=== PATIENT | male | born 1990 | race Two or more races ===

== ENCOUNTER 2018-01-06 17:41 | Observation (INO) | payer MEDICAID, OTHER, SELFPAY ==
[~2018-01-06] VITALS: Ht 177.8 cm; Wt 77.7 kg
[2018-01-06] MEDS ORDERED: ZIPRASIDONE 20MG CAPSULE ONE (18:46)
[2018-01-06] MEDS: ZIPRASIDONE 20MG CAPSULE PO STA ×2 (18:50→19:01)
[2018-01-06 18:52] LABS: BASOPHILS # (AUTO) 0.02 x10^3/uL (0-0.1); BASOPHILS % (AUTO) 0 % (0-1); EOSINOPHILS % (AUTO) 0 % (1-7); LYMPHOCYTES % (AUTO) 14 % (22-44); MD NO; MEAN CORPUSCULAR HEMOGLOBIN 31.5 pg (27.5-34.5); MEAN CORPUSCULAR HGB CONC 34.1 g/dL (33.2-36.2); MEAN CORPUSCULAR VOLUME 92.2 fL (81-97); MONOCYTES # (AUTO) 0.35 x10^3/uL (0.2-0.8); MONOCYTES % (AUTO) 4 % (2-9); NEUTROPHILS # (AUTO) 8.25 x10^3/uL (1.8-6.8); NEUTROPHILS % (AUTO) 82 % (42-75); PLATELET COUNT 250 x10^3/uL (130-400); RED BLOOD COUNT 4.89 x10^6/uL (4.38-5.82); RED CELL DISTRIBUTION WIDTH 13.6 % (9.4-14.8)
[2018-01-06 19:05] LABS: ALBUMIN 3.9 g/dL (3.4-5.0); ANION GAP 8 mmol/L (5-15); CALCIUM 8.7 mg/dL (8.5-10.1); CHLORIDE 108 mmol/L (98-107); CREATININE 0.82 mg/dL (0.7-1.3)
[2018-01-06 19:07] LABS: ACETAMINOPHEN < 2 mcg/mL (10-30); SALICYLATE LEVEL < 1.7 mg/dL (2.8-20.0)
[2018-01-06 19:38] LABS: AMPHETAMINE SCREEN, URINE Negative (Negative); BARBITURATE SCREEN, URINE Negative (Negative); BENZODIAZEPINE SCREEN, URINE Negative (Negative); CANNABINOID SCREEN, URINE Positive (Negative); COCAINE SCREEN, URINE Negative (Negative); METHADONE SCREEN, URINE Negative (Negative); OPIATE SCREEN, URINE Negative (Negative)
[2018-01-06] MEDS ORDERED: ONDANSETRON ODT 4 MG PO PRN (20:30)
[2018-01-06] MEDS ORDERED: ACETAMINOPHEN 325 MG TABLET PO PRN (20:30)
[2018-01-06 21:15] VITALS: BP 123/86
[2018-01-06] MEDS: LORazepam 0.5MG TABLET PO SCH (22:59)
[2018-01-06] MEDS: RISPERIDONE 1 MG TABLET PO SCH (22:59)
[2018-01-07] MEDS: LORazepam 0.5MG TABLET PO SCH ×2 (09:03→21:43)
[2018-01-07] MEDS: RISPERIDONE 1 MG TABLET PO SCH ×2 (09:04→21:43)
[2018-01-07 20:42] VITALS: BP 133/76
[2018-01-08] MEDS: LORazepam 0.5MG TABLET PO SCH ×2 (08:01→20:35)
[2018-01-08] MEDS: RISPERIDONE 1 MG TABLET PO SCH ×2 (09:00→20:35)
[2018-01-08 20:44] VITALS: BP 147/83
[2018-01-09] MEDS ORDERED: ZIPRASIDONE 20 MG INJ IM PRN (05:30)
[2018-01-09 07:41] VITALS: BP 132/84
[2018-01-09] MEDS: RISPERIDONE 1 MG TABLET PO SCH (08:56)
[2018-01-09] MEDS: LORazepam 0.5MG TABLET PO SCH (08:57)
== END 2018-01-09 14:17 ==
LOC: ED 20:24 → SUATTDRO 20:29 → EDIP 20:29 → 2N 21:00
PROVIDERS: ADMIT Hospitalist; ATTEND Hospitalist
DX: R45.851 Suicidal ideations (principal); F33.3 Major depressive disorder, recurrent, severe with psychotic symptoms; F15.90 Other stimulant use, unspecified, uncomplicated
CPT/HCPCS: 36415; 70250; 80048; 80307; 80329; 82040; 85025; 99285; G0378; G0480

== ENCOUNTER 2019-01-15 14:24 | Emergency (ER) | payer MEDICAID, OTHER ==
[~2019-01-15] VITALS: Ht 177.8 cm; Wt 75.9 kg
[2019-01-15 14:27] VITALS: BP 101/59
== END 2019-01-15 14:52 | disposition home or self-care (01) ==
LOC: ED 14:46
DX: F12.229 Cannabis dependence with intoxication, unspecified (principal)
CPT/HCPCS: 99283